=== PATIENT | male | born 1955 | race Asian ===

== ENCOUNTER 2016-11-12 06:12 | Day surgery (SDC) | payer OTHER ==
[2016-11-12] MEDS ORDERED: SODIUM CHLORIDE 0.9% 1,000 ML IV ONE ×2 (06:30→06:32)
[2016-11-12] MEDS ORDERED: CHL25 PO (06:43)
[2016-11-12] MEDS ORDERED: PRAV20TA4 PO (06:43)
[2016-11-12] MEDS ORDERED: GLYB2.5 PO (06:43)
[2016-11-12] MEDS ORDERED: LISI-660 PO (06:43)
[2016-11-12] MEDS ORDERED: GLYB5 PO (06:43)
[2016-11-12] MEDS ORDERED: METF850T2 PO (06:43)
[2016-11-12] MEDS ORDERED: ASPI-1093 PO (06:43)
[2016-11-12 07:08] LABS: GLUCOSE COMMENT 1 Doctor Notified; GLUCOSE,POINT OF CARE 68 MG/DL (70-110)
[2016-11-12] MEDS ORDERED: FentaNYL CITRATE-PF 100 MCG/2 ML VIAL ONE (07:21)
[2016-11-12] MEDS ORDERED: MIDAZOLAM HCL 2 MG/2 ML VIAL ONE (07:21)
[2016-11-12] MEDS ORDERED: MethylPREDNISolone SOD SUCC 125 MG/2 ML VIAL IVP ONE (08:00)
[2016-11-12] MEDS ORDERED: OXYGEN THERAPY IH SCH (08:00)
[2016-11-12] MEDS ORDERED: MethylPREDNISolone SOD SUCC 125 MG/2 ML VIAL ONE (08:30)
[2016-11-12] MEDS ORDERED: ALBUTEROL SULFATE 2.5 MG/0.5 ML NEB SOLUTION NEB ONE (17:24)
[2016-11-12] MEDS ORDERED: LIDOCAINE HCL 4% 50 ML SOLUTION TP ONE (17:24)
[2016-11-12] MEDS ORDERED: BENZOCAINE 20% 50 MCG/SPRAY 57 GM TP ONE (17:24)
[2016-11-12] MEDS ORDERED: LIDOCAINE HCL 2% 30 ML JELLY TP ONE (17:24)
== END 2016-11-12 09:20 | disposition home or self-care (01) ==
LOC: SURGERY 06:12
PROVIDERS: ATTEND Internal Medicine Critical Care Medicine
DX: J38.4 Edema of larynx (principal); E11.9 Type 2 diabetes mellitus without complications; F17.200 Nicotine dependence, unspecified, uncomplicated; Z79.82 Long term (current) use of aspirin; Z79.899 Other long term (current) drug therapy; Z98.49 Cataract extraction status, unspecified eye; Z85.05 Personal history of malignant neoplasm of liver
CPT/HCPCS: 31623; 31624; 71010; 82962; 87015 ×2; 87070; 87101; 87147; 87205; 87220; 88108; 88312; J2250; J2930; J3010; J7030